=== PATIENT | male | born 1990 | race Caucasian/White ===

== ENCOUNTER 2016-06-14 20:31 | Emergency (ER) | payer BC ==
[2016-06-14 20:57] VITALS: BP 122/70
[2016-06-14] MEDS ORDERED: Ketorolac INJ* 60 MG/2 ML VIAL IM ONE (22:11)
[2016-06-14] MEDS ORDERED: Loperamide CAP* 2 MG PO ONE (22:13)
--- NOTE | 2016-06-14 22:17 | UC ---
Abdominal Pain Male HPI - HPI Summary HPI Summary: started feeling ill yesterday, fatigued, achey. Began with stomach cramps last night. OFf and on all day today, waxes and wanes. One episode of non-bloody diarrhea. No vomiting. No appetite. Stomach cramps in band around umbilicus - History of Current Complaint Chief Complaint: UCAbdominalPain Stated Complaint: HEADACHE/CHILLS/NAUSEA Time Seen by Provider: 06/14/16 21:59 Hx Obtained From: Patient Onset/Duration: Gradual Onset, Lasting Days - 1 Timing: Constant Severity Initially: Moderate Severity Currently: Mild Radiates: No Character: Aching, Dull Aggravating Factor(s):: Nothing Alleviating Factor(s): Rest, Position Associated Signs And Symptoms: Positive: Diaphoresis, Decreased Appetite, Diarrhea. Negative: Fever, Cough, Chest Pain, Back Pain, Constipation, Vomiting - Allergies/Home Medications Allergies/Adverse Reactions: Allergies Allergy/AdvReac Type Severity Reaction Status Date / Time No Known Allergies Allergy Verified 06/14/16 20:47 Home Medications: Home Medications Al Hydrox/Mg Hydrox/Simet LIQ* [Maalox Plus*] 30 ml PO Q4H PRN 06/14/16 [ History Confirmed 06/14/16] Amphetamine MIXED SALTS TAB* [Adderall TAB*] 5 mg PO DAILY 06/14/16 [History Confirmed 06/14/16] Bismuth Subsalicylate [Pepto Bismol] 262 mg PO PRN 06/14/16 [History] PMH/Surg Hx/FS Hx/Imm Hx Previously Healthy: Yes - Surgical History Surgical History: Yes Surgery Procedure, Year, and Place: GASTROSCOPE - Family History Known Family History: Negative: Respiratory Disease, Seizure Disorder - Social History Occupation: Employed Full-time Lives: With Family Alcohol Use: None Substance Use Type: None Smoking Status (MU): Never Smoked Tobacco Review of Systems Constitutional: Negative Skin: Negative Eyes: Negative ENT: Negative Respiratory: Negative Cardiovascular: Negative Gastrointestinal: Abdominal Pain, Diarrhea Genitourinary: Negative Motor: Negative Neurovascular: Negative Musculoskeletal: Negative Neurological: Headache, Weakness Psychological: Negative All Other Systems Reviewed And Are Negative: Yes Physical Exam Triage Information Reviewed: Yes Appearance: Well-Appearing, No Pain Distress, Well-Nourished Vital Signs: Initial Vital Signs Temp 98.5 F 06/14/16 20:49 Pulse 97 06/14/16 20:49 Resp 18 06/14/16 20:49 BP 122/70 06/14/16 20:49 Pulse Ox 97 06/14/16 20:49 Vital Signs Reviewed: Yes Eye Exam: Normal Neck exam: Normal Neck: Positive: Supple Respiratory Exam: Normal Respiratory: Positive: Lungs clear, Normal breath sounds, No respiratory distress, No accessory muscle use Abdominal Exam: Normal Abdomen Description: Positive: No Organomegaly, Soft, Other: - mild tenderness around umbilicus on either side. No RLQ tenderness. No rebound or guarding.. Negative: CVA Tenderness (R), CVA Tenderness (L), Distended, Guarding, Hernia @ , Hepatomegaly, McBurney's Point Tenderness, Peritoneal Signs, Pulsatile Mass, Splenomegaly Bowel Sounds: Positive: Present Musculoskeletal Exam: Normal Neurological Exam: Normal Neurological: Positive: Alert, Muscle Tone Normal Psychological Exam: Normal Skin Exam: Normal Diagnostics - Laboratory Diagnostic Studies Completed/Ordered: U/A unremarkable Abd Pain Male Course/Dx - Course Course Of Treatment: advised to go to ER if worsening pain, fever, localization in right lower side - Differential Dx/Clinical Impression Provider Diagnoses: gastroenteritis Discharge - Discharge Plan Condition: Stable Disposition: HOME Prescriptions: Diphenoxylat/Atrop 2.5-0.025M* [Lomotil TAB*] 1 tab PO QID PRN #8 tab MDD 4 tab PRN Reason: Diarrhea Patient Education Materials: Gastroenteritis (ED) Referrals: Raza Morgan DO [Primary Care Provider] -
[2016-06-14] MEDS ORDERED: Loperamide CAP* 2 MG ONE (22:20)
== END 2016-06-14 22:50 | disposition home or self-care (01) ==
LOC: UCCORT 20:31
DX: K52.9 Noninfective gastroenteritis and colitis, unspecified (principal)
CPT/HCPCS: 96372; 99212; A9270-GY; G0463; J1885

== ENCOUNTER 2017-06-12 11:56 | Emergency (ER) | payer BC ==
[2017-06-12 13:44] VITALS: BP 124/80
--- NOTE | 2017-06-12 14:28 | UC ---
Throat Pain/Nasal Walter HPI - HPI Summary HPI Summary: Patient has sore throat, has been exposed to his father who was diagnosed with flu, but patient is afebrile, no body ahces or chills, mild left ear pain - History of Current Complaint Chief Complaint: UCRespiratory Stated Complaint: SORE THROAT NECK PAIN Time Seen by Provider: 06/12/17 14:15 Hx Obtained From: Patient Onset/Duration: Sudden Onset, Lasting Days Severity: Mild Pain Intensity: 3 Associated Signs & Symptoms: Positive: Dysphagia - Allergies/Home Medications Allergies/Adverse Reactions: Allergies Allergy/AdvReac Type Severity Reaction Status Date / Time No Known Allergies Allergy Verified 06/12/17 13:38 Home Medications: Home Medications Ranitidine HCl 150 mg PO BID 06/12/17 [History Confirmed 06/12/17] PMH/Surg Hx/FS Hx/Imm Hx Previously Healthy: Yes - Surgical History Surgical History: Yes Surgery Procedure, Year, and Place: GASTROSCOPE - Family History Known Family History: Negative: Respiratory Disease, Seizure Disorder - Social History Alcohol Use: Occasionally Substance Use Type: None Smoking Status (MU): Never Smoked Tobacco Review of Systems Constitutional: Negative Skin: Negative Eyes: Negative ENT: Sore Throat, Ear Ache Respiratory: Negative Cardiovascular: Negative Gastrointestinal: Negative Genitourinary: Negative Motor: Negative Neurovascular: Negative Musculoskeletal: Negative Neurological: Negative Psychological: Negative Is Patient Immunocompromised?: No All Other Systems Reviewed And Are Negative: Yes Physical Exam Triage Information Reviewed: Yes Appearance: Well-Appearing, Well-Nourished, Pain Distress Vital Signs: Initial Vital Signs Temp 98.9 F 06/12/17 13:40 Pulse 78 06/12/17 13:40 Resp 18 06/12/17 13:40 BP 124/80 06/12/17 13:40 Pulse Ox 99 06/12/17 13:40 Vital Signs Reviewed: Yes Eye Exam: Normal ENT: Positive: Pharyngeal erythema, TMs normal, TM bulging, Tonsillar swelling, Tonsillar exudate Dental Exam: Normal Neck exam: Normal Neck: Positive: Supple, Nontender, No Lymphadenopathy Respiratory Exam: Normal Respiratory: Positive: Chest non-tender, Lungs clear, Normal breath sounds Cardiovascular Exam: Normal Cardiovascular: Positive: RRR, No Murmur, Pulses Normal Abdominal Exam: Normal Abdomen Description: Positive: Nontender, No Organomegaly, Soft Bowel Sounds: Positive: Present Musculoskeletal Exam: Normal Musculoskeletal: Positive: Strength Intact, ROM Intact, No Edema Neurological Exam: Normal Neurological: Positive: Alert, Muscle Tone Normal Psychological Exam: Normal Skin Exam: Normal Throat Pain/Nasal Course/Dx - Course Course Of Treatment: hx obtained, exam performed ,meds reviewed, rapid strep obtained, patient refused pain medication treated for ear infection - Differential Dx/Diagnosis Differential Diagnosis/HQI/PQRI: Otitis Media, Pharyngitis, Sinusitis, URI Provider Diagnoses: left otitis media Discharge - Discharge Plan Condition: Stable Disposition: HOME Patient Education Materials: Ear Infection (ED) Referrals: Raza Morgan DO [Primary Care Provider] - Additional Instructions: 1. take the medication as prescribed. 2. Increase fluid intake and get plenty of rest. 3. You have been exposed to the flu, however, your symtpoms are not flu like, if you develope flu symtpoms, high fever, body aches, chills get plenty of rest and treat the fever and symtpoms. 4. Follow up as needed.
== END 2017-06-12 14:54 | disposition home or self-care (01) ==
LOC: UCCORT 11:56
DX: H66.92 Otitis media, unspecified, left ear (principal); J02.9 Acute pharyngitis, unspecified; R13.10 Dysphagia, unspecified
CPT/HCPCS: 87651; 99212; G0463

== ENCOUNTER 2017-07-19 15:33 | Emergency (ER) | payer BC ==
[2017-07-19 16:05] VITALS: BP 132/84
--- NOTE | 2017-07-19 16:06 | UC ---
Ear Complaint HPI - HPI Summary HPI Summary: Pt presents with right ear/throat pain for the last 2-3 days. He has had more right sided throat pain than ear pain. Worse in the mornings and when swallowing. Denies fever, chills, decreased hearing, cough, SOB, chest pain. - History of Current Complaint Chief Complaint: UCEar Stated Complaint: EAR PAIN Hx Obtained From: Patient Severity Initially: Mild Severity Currently: Mild Pain Intensity: 4 Pain Scale Used: 0-10 Numeric - Allergies/Home Medications Allergies/Adverse Reactions: Allergies Allergy/AdvReac Type Severity Reaction Status Date / Time ketorolac [From Toradol] Allergy Shakes Verified 07/19/17 15:59 Home Medications: Home Medications Dextroamphetamine/Amphetamine [Adderall 5 mg] 1 tab PO DAILY 07/19/17 [History Confirmed 07/19/17] PMH/Surg Hx/FS Hx/Imm Hx Previously Healthy: Yes - Surgical History Surgical History: Yes Surgery Procedure, Year, and Place: GASTROSCOPY 2015 - Family History Known Family History: Positive: None Negative: Respiratory Disease, Seizure Disorder - Social History Occupation: Employed Full-time Lives: With Family Alcohol Use: Occasionally Substance Use Type: None Smoking Status (MU): Never Smoked Tobacco Review of Systems Constitutional: Negative Skin: Negative Eyes: Negative ENT: Sore Throat, Ear Ache Respiratory: Negative Cardiovascular: Negative Gastrointestinal: Negative Psychological: Negative All Other Systems Reviewed And Are Negative: Yes Physical Exam - Summary Physical Exam Summary: GENERAL: NAD. WDWN. No pain distress. SKIN: No rashes, sores, ulcers, masses, lesions. HEENT: Head: AT/NC Eyes: Conjunctiva clear without inflammation or discharge. Ears: Hearing grossly normal. TMs intact, no bulging, erythema, or edema. Nose: Nasal mucosa pink and moist. NTTP maxillary and frontal sinus. Throat: Posterior oropharynx with right sided moderate erythema and 2+ tonsillar enlargement. Mild exudates on right. Uvula midline. No hoarse voice or muffled voice. NECK: Supple. Mild right sided tender anterior LAD. CHEST: CTAB. No r/r/w. No accessory muscle use. Breathing comfortably and in no distress. CV: RRR. Without m/r/g. Pulses intact. Brisk cap refill. NEURO: Alert. CN II-XII grossly intact. PSYCH: Age appropriate behavior. Triage Information Reviewed: Yes Vital Signs: Initial Vital Signs Temp 98.4 F 07/19/17 16:01 Pulse 78 07/19/17 16:01 Resp 18 07/19/17 16:01 BP 132/84 07/19/17 16:01 Pulse Ox 97 07/19/17 16:01 Ear Complaint Course/Dx - Course Course Of Treatment: Tonsillitis with possible beginnings of peritonsillar abscess. Will cover him with Augmentin. - Differential Dx/Diagnosis Provider Diagnoses: Tonsillitis Discharge - Discharge Plan Condition: Stable Disposition: HOME Prescriptions: Amoxicillin/Clavulanate TAB* [Augmentin TAB 875*] 875 mg PO BID #14 tab Patient Education Materials: Tonsillitis (ED) Referrals: Raza Morgan DO [Primary Care Provider] - Additional Instructions: If you develop a fever, shortness of breath, chest pain, new or worsening symptoms - please call your PCP or go to the ED.
== END 2017-07-19 16:35 | disposition home or self-care (01) ==
LOC: UCEAST 15:33
DX: J03.90 Acute tonsillitis, unspecified (principal); H92.01 Otalgia, right ear; Z88.5 Allergy status to narcotic agent
CPT/HCPCS: 99212; G0463

== ENCOUNTER 2017-08-22 10:05 | Emergency (ER) | payer BC ==
[2017-08-22 11:11] VITALS: BP 129/89
--- NOTE | 2017-08-24 10:54 | ED ---
Marah Tinoco Julia, scribed for Scott Garcia MD on 08/22/17 at 1055 . Abdominal Pain/Male - HPI Summary HPI Summary: This patient is a 27 year old M BIBA to [facility] with a chief complaint of sudden weakness, chills, diaphoresis and vomiting about an hour and a half of taking his Effexor at 08:30 this morning. Pt reports one bout of vomiting. He states his symptoms are currently improved but is still experiencing bilateral tingling of the upper arms and is feeling off. Pt denies pain. Pt states that he ate and then immediately took his prescribed Adderall and Effexor. He reports that this is his first time taking the Effexor, as prescribed by his PCP , Dr. Morgan. He has not eaten or drank since vomiting. - History of Current Complaint Chief Complaint: EDNauseaVomitDiarrh Stated Complaint: N/V Time Seen by Provider: 08/22/17 10:35 Hx Obtained From: Patient Onset/Duration: Sudden Onset, Lasting Hours Severity Initially: Moderate Severity Currently: Mild Pain Intensity: 0 Pain Scale Used: 0-10 Numeric Radiates: No Aggravating Factor(s): Other: - new medication Alleviating Factor(s): Spontaneous Resolution Associated Signs And Symptoms: Positive: Diaphoresis, Nausea, Vomiting, Other - weakness, tingling in arms, - Allergies/Home Medications Allergies/Adverse Reactions: Allergies Allergy/AdvReac Type Severity Reaction Status Date / Time ketorolac [From Toradol] Allergy Shakes Verified 07/19/17 15:59 Home Medications: Home Medications Amphetamine MIXED SALTS TAB* [Adderall TAB*] 5 mg PO DAILY 08/22/17 [History Confirmed 08/22/17] Calcium Carbonate CHEW TAB* [Tums*] 500 mg PO BID PRN 08/22/17 [History Confirmed 08/22/17] Ranitidine TAB (NF) [Zantac TAB (NF)] 150 mg PO BID 08/22/17 [History Confirmed 08/22/17] Venlafaxine TAB (NF) [Effexor TAB (NF)] 37.5 mg PO DAILY 08/22/17 [History Confirmed 08/22/17] PMH/Surg Hx/FS Hx/Imm Hx EENT History: Denies: Hx Deafness Psychiatric History: Reports: Hx Attention Deficit Hyperactivity Disorder, Hx Depression - Surgical History Surgery Procedure, Year, and Place: GASTROSCOPY 2016 Infectious Disease History: Unable to Obtain/Confirm Infectious Disease History: Denies: Traveled Outside the [place] in Last 30 Days - Family History Known Family History: Negative: Respiratory Disease, Seizure Disorder - Social History Occupation: Employed Full-time Alcohol Use: Occasionally Hx Substance Use: No Substance Use Type: Reports: None Hx Tobacco Use: No Smoking Status (MU): Never Smoked Tobacco Review of Systems Positive: Chills, Skin Diaphoresis. Negative: Fever Negative: Erythema Negative: Sore Throat Negative: Chest Pain Negative: Shortness Of Breath, Cough Positive: Vomiting, Nausea. Negative: Abdominal Pain Negative: dysuria, hematuria Negative: Myalgia, Edema Negative: Rash Neurological: Negative - dizziness, Other - tingling in upper arms Positive: Weakness All Other Systems Reviewed And Are Negative: Yes Physical Exam - Summary Physical Exam Summary: Constitutional: Well-developed, Well-nourished, Alert. (-) Distressed Skin: Warm, Dry HENT: Normocephalic; Atraumatic Eyes: Conjunctiva normal Neck: Musculoskeletal ROM normal neck. (-) JVD, (-) Stridor, (-) Tracheal deviation Cardio: Rhythm regular, rate normal, Heart sounds normal; Intact distal pulses; The pedal pulses are 2+ and symmetric. Radial pulses are 2+ and symmetric. (-) Murmur Pulmonary/Chest wall: Effort normal. (-) Respiratory distress, (-) Wheezes, (-) Rales Abd: Soft, (-) Tenderness, (-) Distension, (-) Guarding, (-) Rebound Musculoskeletal: (-) Edema Lymph: (-) Cervical adenopathy Neuro: Alert, Oriented x3 Psych: Mood and affect Normal Triage Information Reviewed: Yes Vital Signs On Initial Exam: Initial Vitals Temp Pulse Resp BP Pulse Ox 97.8 F 94 18 131/88 100 08/22/17 10:08/22/17 10:08/22/17 10:09 08/22/17 10:08/22/17 10:09 Vital Signs Reviewed: Yes Diagnostics - Vital Signs Vital Signs Temp Pulse Resp BP Pulse Ox 08/22/17 10:34 125/86 08/22/17 10:09 97.8 F 94 18 131/88 100 - Laboratory Lab Statement: Any lab studies that have been ordered have been reviewed, and results considered in the medical decision making process. Abdominal Pain Fem Course/Dx - Course Course Of Treatment: Pt presents s/p one bout of vomiting with diaphoresis, chills, and generalized weaknessa and malaise occuring an hour and a half after taking Effexor and Adderall at 08:30 today. This is his first dose of Effexor. He has not eaten since vomiting. Pt tolerates PO well while in ED. Timing of onset of symptoms with ingestion of medication is consistent with an adverse reaction to new medication. Effexor was also taken with Adderall. Pt is instructed to not take Effexor and Adderall together. It was recommended to patient that he takes the Effexor at least a few hours after the Adderall, and if symptoms persist to follow up with his primary physician. - Diagnoses Provider Diagnoses: Medication adverse effect Discharge - Sign-Out/Discharge Documenting (check all that apply): Discharge - Discharge Plan Condition: Stable Disposition: HOME Patient Education Materials: Venlafaxine (By mouth) Referrals: Raza Morgan DO [Primary Care Provider] - If Needed (Follow up with your primary care physician if symptoms persist after changing timing of medication. ) Additional Instructions: Change the timing of your medications so you are not taking the Adderall and Effexor at the same time. RETURN TO THE EMERGENCY DEPARTMENT FOR CHANGING OR WORSENING SYMPTOMS. The documentation as recorded by the Marah harrington Julia accurately reflects the service I personally performed and the decisions made by me, Scott Garcia MD.
== END 2017-08-22 11:07 | disposition home or self-care (01) ==
LOC: ED 10:05
DX: R53.1 Weakness (principal); R68.83 Chills (without fever); R61 Generalized hyperhidrosis; R11.10 Vomiting, unspecified; T43.215A Adverse effect of selective serotonin and norepinephrine reuptake inhibitors, initial encounter; Y92.9 Unspecified place or not applicable; F90.9 Attention-deficit hyperactivity disorder, unspecified type; F32.9 Major depressive disorder, single episode, unspecified; Z88.5 Allergy status to narcotic agent
CPT/HCPCS: 99282

== ENCOUNTER 2017-11-19 19:10 | Emergency (ER) | payer BC ==
[2017-11-19 19:23] VITALS: BP 125/82
--- NOTE | 2017-11-19 21:09 | UC ---
Throat Pain/Nasal Walter HPI - HPI Summary HPI Summary: ONSET OF SORE THROAT AND PAIN WITH SWALLOWING TODAY. PATIENT CONCERNED HE HAS STREP. NO FEVER, NO COUGH, NO SWOLLEN GLANDS. NO NAUSEA OR VOMITING. NO EAR PAIN OR PND. THINKS HE SEES A WHITE SPOT ON HIS RIGHT TONSIL. - History of Current Complaint Chief Complaint: UCRespiratory Stated Complaint: SORE THROAT Time Seen by Provider: 11/19/17 19:24 Hx Obtained From: Patient Onset/Duration: Gradual Onset, Lasting Hours, Still Present Severity: Moderate Pain Intensity: 0 Pain Scale Used: 0-10 Numeric Cough: None Associated Signs & Symptoms: Positive: Negative - Allergies/Home Medications Allergies/Adverse Reactions: Allergies Allergy/AdvReac Type Severity Reaction Status Date / Time ketorolac [From Toradol] Allergy Shakes Verified 11/19/17 19:23 PMH/Surg Hx/FS Hx/Imm Hx - Additional Past Medical History Additional PMH: ADHD GI/ History: Gastroesophageal Reflux - Surgical History Surgical History: Yes Surgery Procedure, Year, and Place: GASTROSCOPY 2015 - Family History Known Family History: Positive: None Negative: Respiratory Disease, Seizure Disorder - Social History Alcohol Use: Occasionally Substance Use Type: None Smoking Status (MU): Never Smoked Tobacco Review of Systems Constitutional: Negative ENT: Sore Throat Respiratory: Negative Cardiovascular: Negative Gastrointestinal: Negative All Other Systems Reviewed And Are Negative: Yes Physical Exam Triage Information Reviewed: Yes Appearance: Well-Appearing, No Pain Distress, Well-Nourished Vital Signs: Initial Vital Signs Temp 98 F 11/19/17 19:17 Pulse 82 11/19/17 19:17 Resp 16 11/19/17 19:17 BP 125/82 11/19/17 19:17 Pulse Ox 100 11/19/17 19:17 Vital Signs Reviewed: Yes Eyes: Positive: Conjunctiva Clear ENT: Positive: Hearing grossly normal, TMs normal, Other - RIGHT TONSIL STONE. Negative: Tonsillar swelling, Tonsillar exudate Neck: Positive: Supple, Nontender, No Lymphadenopathy Respiratory Exam: Normal Cardiovascular Exam: Normal Abdomen Description: Positive: Soft Musculoskeletal: Positive: No Edema Neurological: Positive: Alert Psychological: Positive: Age Appropriate Behavior Skin: Negative: rashes Diagnostics - Laboratory Diagnostic Studies Completed/Ordered: STREP NEG Throat Pain/Nasal Course/Dx - Differential Dx/Diagnosis Provider Diagnoses: RIGHT TONSIL STONE Discharge - Sign-Out/Discharge Documenting (check all that apply): Discharge/Admit/Transfer - Discharge Plan Condition: Stable Disposition: HOME Referrals: Raza Morgan DO [Primary Care Provider] - If Needed Additional Instructions: STREP TEST NEGATIVE. YOU HAVE A TONSOLITH IN YOUR RIGHT TONSIL WHICH MAY BE CAUSING YOUR DISCOMFORT. DRINK LOTS OF WATER AND GARGLE WITH SALT WATER TO TRY AND LOOSEN IT UP. IF IT CONTINUES TO CAUSE DISCOMFORT AND YOU'RE UNABLE TO DISLODGE IT AT HOME FOLLOW-UP WITH ENT FOR FURTHER EVALUATION. [facility] [address] [facility] [address] [facility] [phone] What Causes Tonsil Stones? Your tonsils are filled with nooks and crannies where bacteria and other materials, including cells and mucous, can become trapped. When this happens, the debris can become concentrated in white formations that occur in the pockets. Tonsil stones, or tonsilloliths, are formed when this trapped debris hardens, or calcifies. This tends to happen most often in people who have chronic inflammation in their tonsils or repeated bouts of tonsillitis While many people have small tonsilloliths that develop in their tonsils, it is quite rare to have a large and solidified tonsil stone. What Are the Symptoms of Tonsil Stones? Many small tonsil stones do not cause any noticeable symptoms. Even when they are large, some tonsil stones are only discovered incidentally on X-rays or CT scans. Some larger tonsilloliths, however, may have multiple symptoms: -Bad breath. One of the prime indicators of a tonsil stone is exceedingly bad breath, or halitosis, that accompanies a tonsil infection. One study of patients with a form of chronic tonsillitis used a special test to see if volatile sulfur compounds were contained in the subjects' breath. The presence of these foul-smelling compounds provides evidence of bad breath. The researchers found that 75% of the people who had abnormally high concentrations of these compounds also had tonsil stones. Other researchers have suggested that tonsil stones be considered in situations when the cause of bad breath is in question. -Sore throat . When a tonsil stone and tonsillitis occur together, it can be difficult to determine whether the pain in your throat is caused by your infection or the tonsil stone. The presence of a tonsil stone itself, though, may cause you to feel pain or discomfort in the area where it is lodged. -White debris. Some tonsil stones are visible in the back of the throat as a lump of solid white material. This is not always the case. Often they are hidden in the folds of the tonsils. In these instances, they may only be detectable with the help of non-invasive scanning techniques, such as CT scans or magnetic resonance imaging -Difficulty swallowing. Depending on the location or size of the tonsil stone, it may be difficult or painful to swallow foods or liquids. -Ear pain . Tonsil stones can develop anywhere in the tonsil. Because of shared nerve pathways, they may cause a person to feel pain in the ear, even though the stone itself is not touching the ear. -Tonsil swelling. When collected debris hardens and a tonsil stone forms, inflammation from infection (if present) and the tonsil stone itself may cause a tonsil to swell or become larger. How Are Tonsil Stones Treated? The appropriate treatment for a tonsil stone depends on the size of the tonsillolith and its potential to cause discomfort or harm. Options include: No treatment. Many tonsil stones, especially ones that have no symptoms, require no special treatment. At-home removal. Some people choose to dislodge tonsil stones at home with the use of picks or swabs. Salt water gargles. Gargling with warm, salty water may help ease the discomfort of tonsillitis, which often accompanies tonsil stones. Antibiotics. Various antibiotics can be used to treat tonsil stones. While they may be helpful for some people, they cannot correct the basic problem that is causing tonsilloliths. Also, antibiotics can have side effects. Surgical removal. When tonsil stones are exceedingly large and symptomatic, it may be necessary for a surgeon to remove them. In certain instances, a doctor will be able to perform this relatively simple procedure using a local numbing agent. Then the patient will not need general anesthesia. - Billing Disposition and Condition Condition: STABLE Disposition: Home
== END 2017-11-19 20:12 | disposition home or self-care (01) ==
LOC: UCEAST 19:10
DX: J35.8 Other chronic diseases of tonsils and adenoids (principal); Z88.5 Allergy status to narcotic agent; F90.9 Attention-deficit hyperactivity disorder, unspecified type; K21.9 Gastro-esophageal reflux disease without esophagitis
CPT/HCPCS: 87651; 99211; G0463

== ENCOUNTER 2018-10-10 12:20 | Emergency (ER) | payer BC ==
--- OUTSIDE RECORDS SUMMARY | 2018-10-10 12:41 | XMS REPORT | Continuity of Care Document ---
:1990 External Reference #:[id number] Author Name Pebbles Gonzalez PA-C Address [address] [place] [address] Road Unavailable [place] [id number] Care Team Providers Name Role Phone SandraveronicaRaza DO Primary Care Physician Unavailable Payers Date Identification Numbers Payment Provider Subscriber Policy Number: [id number] [employer] Of [employer] Nicole Gaines PayID: [id number] [address] [address] [place] [address] Problems Active Problems Provider Date Gastroesophageal reflux disease Pebbles Gonzalez PA-C Onset: 09/25/2017 Eosinophilic esophagitis Pebbles Gonzalez PA-C Onset: 09/25/2017 Social History Type Date Description Comments Sex Unknown Tobacco Use Start: Unknown Patient has never smoked Smoking Status Reviewed: 09/24/18 Patient has never smoked Allergies, Adverse Reactions, Alerts Active Allergies Reaction Severity Comments Date Pollen 09/17/2015 Dairy 03/27/2017 Medications Active Medications SIG Qnty Indications Ordering Provider Date Ranitidine HCL 1 by mouth bid 60caps K21.9 Belkis 09/24/2018 300mg Capsules MD Mayte Astelin Unknown 137mcg/Friant Solution Hydrocortisone Unknown 1% Cream Adderall 1 by mouth bid Unknown 5mg Tablets Ranitidine Acid Lsat Instructor twice a day Unknown 150mg Tablets Tums 2 by mouth Unknown 500mg Chewtabs every day History Medications Flovent HFA 2 sprays swallowed 1units Samantha Earl, 12/26/2016 - twice a day GLASS CARRIER-C 03/26/2018 220mcg/Act Aerosol Flovent HFA 2 sprays swallowed 1units K20.0 Samantha Earl, 09/17/2015 - twice a day GLASS CARRIER-C 11/04/2016 220mcg/Act Aerosol Ibuprofen prn Unknown - 600mg 09/25/2017 Tablets Robitussin Chest as needed Unknown - Congestion 04/20/2016 100mg/5ML Syrup Ranitidine HCL CathyRaza, - 09/25/2017 150mg Tablets Vital Signs Date Vital Result Comment 09/24/2018 8:06am Height 70 inches 5'10" Weight 182.00 lb BP Systolic 117 mmHg BP Diastolic 81 mmHg Heart Rate 75 /min BMI (Body Mass Index) 26.1 kg/m2 03/26/2018 8:00am Height 70 inches 5'10" Weight 173.00 lb BP Systolic 123 mmHg BP Diastolic 89 mmHg Heart Rate 76 /min BMI (Body Mass Index) 24.8 kg/m2 09/25/2017 8:27am Height 70 inches 5'10" Weight 174.00 lb BP Systolic 134 mmHg BP Diastolic 80 mmHg Heart Rate 74 /min BMI (Body Mass Index) 25.0 kg/m2 03/27/2017 8:53am Height 70 inches 5'10" Weight 189.00 lb BP Systolic 132 mmHg BP Diastolic 92 mmHg Heart Rate 84 /min BMI (Body Mass Index) 27.1 kg/m2 11/04/2016 9:27am Height 70 inches 5'10" Weight 188.00 lb BP Systolic 123 mmHg BP Diastolic 85 mmHg Heart Rate 76 /min BMI (Body Mass Index) 27.0 kg/m2 04/20/2016 10:15am Height 70 inches 5'10" Weight 192.00 lb BP Systolic 132 mmHg BP Diastolic 88 mmHg Heart Rate 78 /min BMI (Body Mass Index) 27.5 kg/m2 12/28/2015 8:03am Height 70 inches 5'10" Weight 196.00 lb BMI (Body Mass Index) 28.1 kg/m2 10/19/2015 8:11am Height 70 inches 5'10" Weight 199.00 lb BP Systolic 120 mmHg BP Diastolic 88 mmHg Heart Rate 60 /min BMI (Body Mass Index) 28.6 kg/m2 09/17/2015 11:28am Height 70 inches 5'10" Weight 199.50 lb BP Systolic 120 mmHg BP Diastolic 76 mmHg BMI (Body Mass Index) 28.6 kg/m2 Results Test Date Facility Test Result H/L Range Note Laboratory test 08/27/2015 [facility] SEE RESULT 1 finding Interface Order BELOW 1 SEE RESULT BELOW Name: NICOLE GAINES : [address]: Nicole Gonzalez MD Acct: [id number] Unit: [id number] AGE: 25 Location: ED Re08/27/15 SEX: M Status: DEP ER SPEC: [id number] ANN: 08/27/[address] [facility] [address]: Lamont Combs MD REQ: [id number] RECD: 08/27/15855 STATUS: CEM RAJAN DR: Nicole Morgan DO _ ORDERED: LEVEL IV FINAL DIAGNOSIS Esophagus, mid, biopsies: -- Allergic/eosinophilic esophagitis, moderate to severe. -- No glandular component identified. CLINICAL HISTORY Esophageal food impaction POST-OPERATIVE DIAGNOSIS Esophagus - food bolus already passed. Probable eosinophilic esophagitis biopsied, no stricture/erosion; stomach - partially obscured views from food - normal; pylorus - normal and patent; duodenum - normal bulb to third portion. Conclusions/Plan: Erosive esophagitis biopsied GROSS DESCRIPTION The specimen is received in formalin labeled, Biopsy Mid Esophagus, and consists of a 0.9 x 0.4 x 0.1 cm aggregate of white irregular soft tissue fragments, which are entirely submitted in one cassette. Signed (signature on file) Peter Mg MD 1252 END OF REPORT * ML=Testing performed at Main Lab DEPARTMENT OF PATHOLOGY, [address] [place] [address] Peter Mg M.D. Director [facility] # [id number] SEE RESULT BELOW Name: NICOLE GAINES : [address]: Nicole Gonzalez MD Acct: [id number] Unit: [id number] AGE: 25 Location: ED Re08/27/15 SEX: M Status: DEP ER SPEC: [id number] ANN: 08/27/15-[address]: Lamont Combs MD REQ: [id number] RECD: 08/27/15-667 STATUS: CEM RAJAN DR: Nicole Morgan DO _ ORDERED: LEVEL IV FINAL DIAGNOSIS Esophagus, mid, biopsies: -- Allergic/eosinophilic esophagitis, moderate to severe. -- No glandular component identified. CLINICAL HISTORY Esophageal food impaction POST-OPERATIVE DIAGNOSIS Esophagus - food bolus already passed. Probable eosinophilic esophagitis biopsied, no stricture/erosion; stomach - partially obscured views from food - normal; pylorus - normal and patent; duodenum - normal bulb to third portion. Conclusions/Plan: Erosive esophagitis biopsied GROSS DESCRIPTION The specimen is received in formalin labeled, Biopsy Mid Esophagus, and consists of a 0.9 x 0.4 x 0.1 cm aggregate of white irregular soft tissue fragments, which are entirely submitted in one cassette. Signed (signature on file) Peter Mg MD 1252 END OF REPORT * ML=Testing performed at Main Lab DEPARTMENT OF PATHOLOGY, [address] [place] [address] Peter Mg M.D. Director [facility] # [id number] Procedures Date Code Description Status 08/27/2015 65237 EGD+Biopsy Single Or Multiple Completed Encounters Type Date Location Provider Dx Diagnosis Office Visit 03/26/2018 [facility]enter[facility] Pebbles Fung K20.0 [facility]ophilic [facility] Carlos esophagnatanael PA-C K21.9 Gastro-esophageal reflux disease without esophagitis Office 09/25/2017 Gastroenterology Pebbles Fung K20.0 Eosinophilic Visit 8[facility] CRISTIAN Gonzalez-Doreen esophagitis K21.9 Gastro-esophageal reflux disease without esophagitis Office Visit 03/27/2017 Gastroenterology Samantha K20.0 Eosinophilic 9[facility] Earl esophagitis GLASS CARRIER-C K21.9 Gastro-esophageal reflux disease without esophagitis Office Visit 11/04/2016 Gastroenterology Samantha K20.0 Eosinophilic 9:30a [facility], esophagitis GLASS CARRIER-C K21.9 Gastro-esophageal reflux disease without esophagitis [facility], esophagitis GLASS CARRIER-C K21.9 Gastro-esophageal reflux disease without esophagitis Office [facility], esophagitis GLASS CARRIER-C [facility] 11:[facility], esophagitis GLASS CARRIER-C Plan of Treatment Future Appointment(s):03/27/2019 8:00 am - JEANNINE RamirezC at [facility]09/24/2018 - CRISTIAN Ramirez- CK20.0 Eosinophilic [id number] Gastro-esophageal reflux disease without esophagitisNew Medication:Ranitidine HCL 300 mg - 1 by mouth bid
--- NOTE | 2018-10-10 12:54 | ED ---
Palpitations / Dysrhythmia - HPI Summary HPI Summary: Pt is a 28 y/o M presenting to the ED with a chief complaint of a racing heart rate onset about 2-3 hours ago. He states he took Ranitidine 300mg, Adderall XR 10mg, and Excedrin 650mg at approximately 0800 this morning, and he had onset of sx an hour and a half later. He reports hot flashes, cold hands, shakiness, anxiety, nausea, and palpitations. He denies vomiting. - History of Current Complaint Chief Complaint: EDDysrhythmPalp Time Seen by Provider: 10/10/18 12:45 Hx Obtained From: Patient Onset/Duration: Sudden Onset, Lasting Hours, Still Present Timing: Constant Severity Initially: Moderate Severity Currently: Moderate Character: Fast Aggravating: Medication Alleviating: Nothing Associated Signs & Symptoms: Nausea - Allergy/Home Medications Allergies/Adverse Reactions: Allergies Allergy/AdvReac Type Severity Reaction Status Date / Time ketorolac [From Toradol] Allergy Shakes Verified 10/10/18 12:34 venlafaxine Allergy See Comment Verified 10/10/18 12:34 whey Allergy Anaphylatic Verified 10/10/18 12:34 Shock hay fever Allergy Eyes Uncoded 07/15/18 07:16 Itchy/Swollen/Red/Watery Home Medications: Home Medications Acetaminophen/Caffeine [Excedrin Tension Headache Cplt] 2 each PO BID 10/10/18 [ History Confirmed 10/10/18] PMH/Surg Hx/FS Hx/Imm Hx Previously Healthy: Yes Endocrine/Hematology History: Denies: Hx Diabetes Cardiovascular History: Denies: Hx Hypertension Sensory History: Denies: Hx Deafness Psychiatric History: Reports: Hx Anxiety, Hx Attention Deficit Hyperactivity Disorder, Hx Depression - Surgical History Surgery Procedure, Year, and Place: GASTROSCOPY 2016 Infectious Disease History: No Infectious Disease History: Denies: Traveled Outside the [place] in Last 30 Days - Family History Known Family History: Positive: Cardiac Disease, Hypertension, Diabetes, Other - strong fhx gallstones Negative: Respiratory Disease, Seizure Disorder - Social History Alcohol Use: Occasionally Hx Substance Use: No Substance Use Type: Reports: None Hx Tobacco Use: No Smoking Status (MU): Never Smoked Tobacco Review of Systems Positive: Other - cold hands with body hot flashes Positive: Palpitations Positive: Nausea. Negative: Vomiting Positive: Other - shaking Positive: Anxious All Other Systems Reviewed And Are Negative: Yes Physical Exam - Summary Physical Exam Summary: Appearance: Well appearing, no pain distress Skin: warm, dry, reflects adequate perfusion Head/face: normal Eyes: EOMI, JENNI ENT: normal Neck: supple, non-tender Respiratory: CTA, breath sounds present Cardiovascular: RRR, pulses symmetrical Abdomen: non-tender, soft Musculoskeletal: normal, strength/ROM intact Neuro: normal, sensory motor intact, A&Ox3 Triage Information Reviewed: Yes Vital Signs On Initial Exam: Initial Vitals Temp Pulse Resp BP Pulse Ox 97.7 F 91 16 149/98 100 10/10/18 12:29 10/10/18 12:29 10/10/18 12:29 10/10/18 12:29 10/10/18 12:29 Vital Signs Reviewed: Yes Diagnostics - Vital Signs Vital Signs Temp Pulse Resp BP Pulse Ox 10/10/18 12:29 97.7 F 91 16 149/98 100 - Laboratory Result Diagrams: 10/10/18 13:15 10/10/18 13:13 Lab Statement: Any lab studies that have been ordered have been reviewed, and results considered in the medical decision making process. - Radiology CXR Radiology Interpretation Completed By: Radiologist Summary of Radiographic Findings: No active cardiopulmonary disease is noted. ED physician has reviewed this report. - EKG 1249 Cardiac Rate: NL - 81bpm EKG Rhythm: Sinus Rhythm ST Segment: Normal Ectopy: None Summary of EKG Findings: EKG at 1249 shows NSR at 81bpm with no STEMI. Course/Dx - Course Course Of Treatment: Pt is a 28 y/o M presenting to the ED with a chief complaint of a racing heart rate onset about 2-3 hours ago. He states he took Ranitidine 300mg, Adderall XR 10mg, and Excedrin 650mg at approximately 0800 this morning, and he had onset of sx an hour and a half later. He reports hot flashes, cold hands, shakiness, anxiety, nausea, and palpitations. He denies vomiting. Pt's physical exam is normal. EKG at 1249 shows NSR at 81bpm with no STEMI. CXR shows: No active cardiopulmonary disease is noted. Pt will be sent home with dx of palpitations and anxiety. He is stable and agreeable with this plan. - Diagnoses Differential Diagnosis/HQI/PQRI: Positive: Panic Disorder Provider Diagnoses: Palpitations, Anxiety Discharge - Sign-Out/Discharge Documenting (check all that apply): Patient Departure Patient Received Moderate/Deep Sedation with Procedure: No - Discharge Plan Condition: Stable Disposition: HOME Patient Education Materials: Heart Palpitations (ED) Referrals: Raza Morgan DO [Primary Care Provider] - Additional Instructions: Please follow up with your primary care provider within the next 2-3 days. Return to the emergency department with any new or worsening symptoms. - Billing Disposition and Condition Condition: STABLE Disposition: Home - Attestation Statements Document Initiated by Eugeneibe: Yes Documenting Scribe: Kim Campos Provider For Whom Elizabeth is Documenting (Include Credential): Patricio Quick MD. Scribe Attestation: Kim Tinoco scribed for Patricio Quick MD. on 10/10/18 at 1428. Scribe Documentation Reviewed: Yes Provider Attestation: The documentation as recorded by the Kim harrington accurately reflects the service I personally performed and the decisions made by Patricio retana MD. Status of Scribe Document: Viewed
[2018-10-10 13:31] LABS: Activated Partial Thrombo Time 34.4 seconds (26.0-38.0); INR 1.05 (0.82-1.09)
[2018-10-10 13:33] LABS: ABS Eosinophils 0.1 10^3/ul (0-0.6); ABS Lymphocytes 1.3 10^3/ul (1.0-4.8); ABS Monocytes 0.4 10^3/ul (0-0.8); ABS Neutrophils 3.5 10^3/ul (1.5-7.7); Eosinophil % 1.1 %; Hematocrit 46 % (42-52); Lymphocyte % 24.4 %; Mean Corpuscular HGB Conc 35 g/dL (31-36); Mean Corpuscular Hemoglobin 31 pg (27-31); Mean Corpuscular Volume 89 fL (80-94); Mean Platelet Volume 9.3 fL (7.4-10.4); Nucleated Red Blood Cells % 0.1; Platelet Count 173 10^3/uL (150-450); Red Blood Count 5.16 10^6 /uL (4.18-5.48); Red Cell Distribution Width 13 % (10.5-15); White Blood Count 5.3 10^3/uL (3.5-10.8)
[2018-10-10 13:51] LABS: Albumin 4.5 g/dL (3.2-5.2); Albumin/Globulin Ratio 1.6 (1-3); Calcium 9.8 mg/dL (8.6-10.3); EGFR African American 115.6 (>60); EGFR Non-African American 95.6 (>60); Globulin 2.9 g/dL (2-4); Potassium 3.9 mmol/L (3.5-5.0); Total Bilirubin 0.6 mg/dL (0.2-1.0); Total Protein 7.4 g/dL (6.4-8.9)
[2018-10-10 14:32] VITALS: BP 131/87
== END 2018-10-10 14:33 | disposition home or self-care (01) ==
LOC: ED 12:20
DX: R00.2 Palpitations (principal); F90.9 Attention-deficit hyperactivity disorder, unspecified type; F41.9 Anxiety disorder, unspecified; F32.9 Major depressive disorder, single episode, unspecified; Z88.8 Allergy status to other drugs, medicaments and biological substances
CPT/HCPCS: 36415; 71045; 80053; 84484; 85025; 85610; 85730; 93005; 99283

== ENCOUNTER 2018-11-23 15:22 | Emergency (ER) | payer BC ==
[2018-11-23 15:46] VITALS: BP 117/72
--- NOTE | 2018-11-23 16:09 | UC ---
UC General HPI - HPI Summary HPI Summary: RN notes - Left side Abdominal pain after eating something spicy today. Pain wraps around back. HX of acid refux. 28 yo gentleman presents c/o L upper abd pain, that at it's worst, radiates to the upper chest, left upper back, and up to left shoulder. Waxes and wanes, but doesn't completely resolve. Pain started early this afternoon, apprx 30min post eating spicy food, does not think lactose included. No hx of this type of pain. Did have an esophageal blockage years ago, removed via endoscopy. Prior hx alcohol, but minimal now, since started adhd meds. Last alcohol 10oz beer last week x 1. No fever / chills. No melena / brbpr. No urine issues. No sob. No recent trauma. No hx abd or chest surgery. Took ca carbonate after pain started, no improvement. No rash. No food since pain started approx 12: 30pm. - History of Current Complaint Chief Complaint: UCAbdominalPain Stated Complaint: ABDOMINAL AND BACK PAIN Time Seen by Provider: 11/23/18 16:08 Hx Obtained From: Patient Pain Intensity: 4 - Allergy/Home Medications Allergies/Adverse Reactions: Allergies Allergy/AdvReac Type Severity Reaction Status Date / Time ketorolac [From Toradol] Allergy Shakes Verified 11/23/18 15:46 venlafaxine Allergy See Comment Verified 11/23/18 15:46 whey Allergy Anaphylatic Verified 11/23/18 15:46 Shock hay fever Allergy Eyes Uncoded 07/15/18 07:16 Itchy/Swollen/Red/Watery Home Medications: Home Medications Guanfacine HCl [Intuniv] 1 mg PO DAILY 11/23/18 [History Confirmed 11/23/18] guanFACINE TAB* [Tenex TAB*] 0.5 mg PO BID 11/23/18 [History Confirmed 11/23/18] PMH/Surg Hx/FS Hx/Imm Hx Previously Healthy: Yes - see hpi - Surgical History Surgical History: Yes Surgery Procedure, Year, and Place: GASTROSCOPY 2015 - Family History Known Family History: Positive: Cardiac Disease, Hypertension, Diabetes, Other - strong fhx gallstones Negative: Respiratory Disease, Seizure Disorder - Social History Alcohol Use: Rare Substance Use Type: None Smoking Status (MU): Never Smoked Tobacco Review of Systems All Other Systems Reviewed And Are Negative: Yes Constitutional: Positive: Other - see hpi Skin: Positive: Negative Eyes: Positive: Negative ENT: Positive: Negative, Other - no st Respiratory: Positive: Negative Cardiovascular: Positive: Negative Gastrointestinal: Positive: Other - see hpi Genitourinary: Positive: Other - see hpi Motor: Positive: Negative Neurovascular: Positive: Negative Musculoskeletal: Positive: Negative Neurological: Positive: Negative Psychological: Positive: Negative Is Patient Immunocompromised?: No Physical Exam Triage Information Reviewed: Yes Appearance: Well-Nourished, Other: - sitting up, but looks uncomfortable Vital Signs: Initial Vital Signs Temp 97.9 F 11/23/18 15:40 Pulse 83 11/23/18 15:40 Resp 12 11/23/18 15:40 BP 117/72 11/23/18 15:40 Pulse Ox 100 11/23/18 15:40 Vital Signs Reviewed: Yes Eye Exam: Normal ENT Exam: Normal Neck exam: Normal Neck: Positive: Supple Respiratory Exam: Normal, Other - reports pain worse with full expiration Respiratory: Positive: Chest non-tender, Lungs clear, Normal breath sounds, No respiratory distress, No accessory muscle use Cardiovascular Exam: Normal Cardiovascular: Positive: RRR, No Murmur, Pulses Normal, Brisk Capillary Refill Abdominal Exam: Other - soft, nd. + tender mid and upper left abd. No cvat, although + radiation of pain + bs slight decreased Musculoskeletal Exam: Normal Neurological Exam: Normal - grossly nonfocal Psychological Exam: Normal - conversing easily and appropriately Course/Dx - Course Course Of Treatment: Acute abd pain, differential is extensive. D/w pt coa / tx plan. Encourage ED evaluation / tx. Mr. Gaines carefully considered this, and agrees to go to the ED. EMS offered, but he will drive pov. Questions as posed answered to the best of my ability. - Diagnoses Provider Diagnosis: Acute abdominal pain Discharge - Sign-Out/Discharge Documenting (check all that apply): Patient Departure All imaging exams completed and their final reports reviewed: No Studies - Discharge Plan Condition: Stable Disposition: HOME Patient Education Materials: Acute Abdominal Pain (ED) Referrals: Raza Morgan DO [Primary Care Provider] - Additional Instructions: Please go to the Emergency Department. Do not eat or drink (unless ice chip), en route. Stop and call 911 if any problems en route. - Billing Disposition and Condition Condition: STABLE Disposition: Home
== END 2018-11-23 16:42 | disposition home or self-care (01) ==
LOC: UCEAST 15:22
DX: R10.9 Unspecified abdominal pain (principal); K21.9 Gastro-esophageal reflux disease without esophagitis
CPT/HCPCS: 99212; G0463

== ENCOUNTER 2018-11-23 17:04 | Emergency (ER) | payer BC ==
[2018-11-23 18:47] LABS: Urine Appearance Clear; Urine Bilirubin Negative (Negative); Urine Blood Negative (Negative); Urine Color Yellow; Urine Glucose Negative (Negative); Urine Ketones Negative (Negative); Urine Nitrite Negative (Negative); Urine Protein Negative (Negative); Urine Urobilinogen Negative (Negative)
--- NOTE | 2018-11-23 19:42 | ED ---
Abdominal Pain/Male - HPI Summary HPI Summary: This patient is a 28 year old male presenting to [facility] referred by [facility] with a chief complaint of LUQ pain since 5 hours ago. He says the pain radiates around to his back all the up to the neck/ears, ,as well as epigastric pain and a pressure feeling in esophagus. He states the pain is aggravated with movement. He says he is worried it is because he had spicy food an hour prior to the start of symptoms. His last BM was yesterday and states it was normal. He denies N/V/D and dysuria. He says he has not been losing his appetite. 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 He rates his pain 5/10 in severity and describes it as a shooting pain. - History of Current Complaint Chief Complaint: EDJessicain Stated Complaint: ABD PAIN THAT RADIATES TO THE BACK PER PT Time Seen by Provider: 11/23/18 19:35 Hx Obtained From: Patient Pain Intensity: 5 Pain Scale Used: 0-10 Numeric Location: Discrete At: LUQ, Epigastric Radiates: Yes Radiates to: Back - Allergies/Home Medications Allergies/Adverse Reactions: Allergies Allergy/AdvReac Type Severity Reaction Status Date / Time ketorolac [From Toradol] Allergy Shakes Verified 11/23/18 19:59 venlafaxine Allergy See Comment Verified 11/23/18 19:59 whey Allergy Anaphylatic Verified 11/23/18 19:59 Shock hay fever Allergy Eyes Uncoded 07/15/18 07:16 Itchy/Swollen/Red/Watery PMH/Surg Hx/FS Hx/Imm Hx Endocrine/Hematology History: Denies: Hx Diabetes Cardiovascular History: Denies: Hx Hypertension Sensory History: Denies: Hx Deafness Psychiatric History: Reports: Hx Anxiety, Hx Attention Deficit Hyperactivity Disorder, Hx Depression - Surgical History Surgery Procedure, Year, and Place: GASTROSCOPY 2016 Infectious Disease History: No Infectious Disease History: Denies: Traveled Outside the [place] in Last 30 Days - Family History Known Family History: Positive: Cardiac Disease, Hypertension, Diabetes, Other - strong fhx gallstones Negative: Respiratory Disease, Seizure Disorder - Social History Alcohol Use: Rare Hx Substance Use: No Substance Use Type: Reports: None Hx Tobacco Use: No Smoking Status (MU): Never Smoked Tobacco Review of Systems Positive: Abdominal Pain. Negative: Vomiting, Diarrhea, Nausea Negative: dysuria All Other Systems Reviewed And Are Negative: Yes Physical Exam - Summary Physical Exam Summary: Appearance: Well-appearing, Well-nourished, lying in bed comfortably Skin: Warm, dry, no obvious rash Eyes: sclera anicteric, no conjunctival pallor ENT: mucous membranes moist, pharynx appears normal Neck: Supple, nontender Respiratory: Clear to auscultation, no signs of respiratory distress Cardiovascular: Normal S1, S2. No murmurs. Normal distal pulses in tibial and radial bilaterally. Abdomen: Soft, nontender, normal active bowel sounds present Musculoskeletal: Normal, Strength/ROM Intact Neurological: A&Ox3, awake and alert, mentation is normal, speech is fluent and appropriate Psychiatric: affect is normal, does not appear anxious or depressed Triage Information Reviewed: Yes Vital Signs On Initial Exam: Initial Vitals Temp Pulse Resp BP Pulse Ox 98.4 F 85 16 140/89 99 11/23/18 17:07 11/23/18 17:07 11/23/18 17:07 11/23/18 17:07 11/23/18 17:07 Vital Signs Reviewed: Yes Diagnostics - Vital Signs Vital Signs Temp Pulse Resp BP Pulse Ox 11/23/18 19:11 99.1 F 76 16 129/69 98 11/23/18 17:07 98.4 F 85 16 140/89 99 - Laboratory Lab Results: Lab Results 11/23/18 Range/Units 18:37 Urine Color Yellow Urine Appearance Clear Urine pH 6.0 (5-9) Ur Specific [place] 1.020 (1.010-1.030) Urine Protein Negative (Negative) Urine Ketones Negative (Negative) Urine Blood Negative (Negative) Urine Nitrate Negative (Negative) Urine Bilirubin Negative (Negative) Urine Urobilinogen Negative (Negative) Ur Leukocyte Esterase Negative (Negative) Urine Glucose Negative (Negative) Result Diagrams: 11/23/18 20:18 11/23/18 20:18 Lab Statement: Any lab studies that have been ordered have been reviewed, and results considered in the medical decision making process. Abdominal Pain Male Course/Dx - Course Course Of Treatment: This patient is a 28 year old male presenting to [facility] referred by [facility] with a chief complaint of LUQ pain since 5 hours ago. Labs were unremarkable for any acute problems. A plan for discharge was discussed with the patient and he was agreeable with this plan. - Diagnoses Provider Diagnoses: Acute abdominal pain, GERD (gastroesophageal reflux disease) Discharge - Sign-Out/Discharge Documenting (check all that apply): Patient Departure - Discharge Patient Received Moderate/Deep Sedation with Procedure: No - Discharge Plan Condition: Good Disposition: HOME Prescriptions: Omeprazole CAP (NF) [Prilosec CAP* 20 MG] 20 mg PO BID #30 cap. Patient Education Materials: Gastroesophageal Reflux Disease (ED), Acute Abdominal Pain (ED) Referrals: Raza Morgan DO [Primary Care Provider] - Additional Instructions: Stop the ranitidine while taking the prilosec. Followup with your doctor as already arranged, but be sure to return if your symptoms are progressing. - Billing Disposition and Condition Condition: GOOD Disposition: Home - Attestation Statements Document Initiated by Elizabeth: Yes Documenting Scribe: Gurinder Nguyen Provider For Whom Elizabeth is Documenting (Include Credential): Mario Knightibe Attestation: Gurinder Tinoco, cobyibed for Mario Alfaro on 11/24/18 at 0431. Scribe Documentation Reviewed: Yes Provider Attestation: The documentation as recorded by the Gurinder harrington accurately reflects the service I personally performed and the decisions made by Mario retana Status of Scribe Document: Viewed
[2018-11-23 20:24] LABS: ABS Basophils 0.1 10^3/ul (0-0.2); ABS Eosinophils 0.2 10^3/ul (0-0.6); ABS Lymphocytes 2.2 10^3/ul (1.0-4.8); ABS Monocytes 0.7 10^3/ul (0-0.8); ABS Neutrophils 6.1 10^3/ul (1.5-7.7); Eosinophil % 1.8 %; Hematocrit 45 % (42-52); Hemoglobin 15.5 g/dL (14.0-18.0); Lymphocyte % 23.8 %; Mean Corpuscular HGB Conc 35 g/dL (31-36); Mean Corpuscular Hemoglobin 31 pg (27-31); Mean Corpuscular Volume 89 fL (80-94); Platelet Count 180 10^3/uL (150-450); Red Blood Count 5.02 10^6 /uL (4.18-5.48); Red Cell Distribution Width 13 % (10-15); White Blood Count 9.2 10^3/uL (3.5-10.8)
[2018-11-23 20:40] LABS: Albumin 4.4 g/dL (3.2-5.2); Albumin/Globulin Ratio 1.6 (1-3); BUN/Creatinine Ratio 14.7 (8-20); C Reactive Protein 2.05 mg/L (<8.01); Calcium 10.2 mg/dL (8.6-10.3); EGFR African American 114.2 (>60); EGFR Non-African American 94.4 (>60); Globulin 2.8 g/dL (2-4); Potassium 4.4 mmol/L (3.5-5.0); Total Bilirubin 0.5 mg/dL (0.2-1.0); Total Protein 7.2 g/dL (6.4-8.9)
[2018-11-23 22:33] VITALS: BP 115/87
== END 2018-11-23 22:30 | disposition home or self-care (01) ==
LOC: ED 17:04
DX: R10.12 Left upper quadrant pain (principal); K21.9 Gastro-esophageal reflux disease without esophagitis; Z88.5 Allergy status to narcotic agent; Z88.8 Allergy status to other drugs, medicaments and biological substances
CPT/HCPCS: 36415; 80053; 81003; 83690; 85025; 86140; 99282